=== PATIENT | female | born 1950 ===

== ENCOUNTER 2023-07-04 09:11 | Outpatient (CLI) | payer OTHER ==
[2023-07-04] MEDS ORDERED: GLUMETZA1000 MG PO (10:56)
[2023-07-04] MEDS ORDERED: SYNTHROID88 MCG PO (10:57)
[2023-07-04] MEDS ORDERED: ENALAPRIL MALEA10 MG PO (10:57)
[2023-07-04] MEDS ORDERED: SIMVA PO (10:58)
[2023-07-04] MEDS ORDERED: NORVASC2.5 MG PO (10:58)
[2023-07-04] MEDS ORDERED: JANUVIA100 MG PO (10:58)
[2023-07-04] MEDS ORDERED: JARDIANCE25 MG PO (10:59)
[2023-07-04] MEDS ORDERED: COSENTYX (150 MG/1 M (11:00)
== END 2023-07-04 10:23 | disposition home or self-care (01) ==
LOC: LAB 09:11
PROVIDERS: ATTEND Orthopaedic Surgery
DX: U07.1 COVID-19 (principal); I10 Essential (primary) hypertension